=== PATIENT | male | born 1985 | race Hispanic/Latino ===

== ENCOUNTER 2019-01-21 04:08 | Emergency (ER) | payer SELFPAY ==
[2019-01-21] MEDS ORDERED: Lidocaine Viscous Sol 2% 15 ml UD Cup ONE (04:19)
[2019-01-21] MEDS ORDERED: Dexamethasone 10 MG/ML VIAL ONE (04:19)
== END 2019-01-21 04:57 | disposition home or self-care (01) ==
LOC: ERS 04:08
DX: J02.9 Acute pharyngitis, unspecified (principal); F90.9 Attention-deficit hyperactivity disorder, unspecified type; Z71.6 Tobacco abuse counseling; Z87.891 Personal history of nicotine dependence
CPT/HCPCS: 87081; 87430; 99406; J1100